=== PATIENT | female | born 1985 | race Caucasian/White ===

== ENCOUNTER 2021-04-02 14:56 | Emergency (ER) | payer OTHER ==
[~2021-04-02 14:56] MED LIST: CERTAGEN1 EACH PO; CITRATE OF MAG296 ML PO; HCTZ25 MG PO; IBUPROFEN800 MG PO; MACROBID100 MG PO; MAXALT10 MG PO; MIRALAX17 GM PO; NORETHINDRONE PO; ONDANSETRON ODT4 MG PO
[2021-04-02 16:32] LABS: BASOPHIL 0.2 % (0-2); EOSINOPHIL 0.1 % (0-5); HCT 33.6 % (37.0-47.0); HGB 11.2 g/dl (12.5-16.0); LYMPHOCYTE 4.8 % (15-48); MCH 28.9 pg (25.0-31.0); MCHC 33.3 g/dL (32.0-36.0); MCV 86.8 fL (78.0-100.0); MONOCYTE 5.5 % (0-12); MPV 9.8 fL (6.0-9.5); NEUTROPHIL 88.9 % (41-80); NRBC 0; PLT 267 K/uL (150-400); RBC 3.87 M/uL (4.20-5.40); RDW 14.1 % (11.5-14.0); WBC 16.6 K/uL (4.0-10.5)
[2021-04-02 16:32] LABS: BILIRUBIN NEGATIVE (NEGATIVE); BLOOD 1+ Ery/uL (NEGATIVE); CLARITY CLEAR (CLEAR); COLOR YELLOW (YELLOW); GLUCOSE (U) NORMAL (NORMAL); LEUKOCYTES 2+ Leu/uL (NEGATIVE); NITRITE NEGATIVE (NEGATIVE); PROTEIN 1+ mg/dL (NEGATIVE)
[2021-04-02 16:41] LABS: BACTERIA 3+
[2021-04-02 16:42] LABS: MUCOUS MODERATE; SQUAMOUS EPITHELIAL CELLS 20-50
[2021-04-02 16:47] LABS: ALBUMIN 2.3 g/dL (3.4-5.0); BILIRUBIN - TOTAL 0.5 mg/dL (0.2-1.0); CREATININE 0.6 mg/dL (0.51-0.95); GLOBULIN (CALCULATION) 3.5 g/dL; POTASSIUM 3.9 mmol/L (3.5-5.1); TOTAL PROTEIN 5.8 g/dL (6.4-8.2)
[2021-04-02] MEDS ORDERED: PROMETHEGA12.5 MG/SU PR (22:13)
[2021-04-02] MEDS ORDERED: MACROBID100 MG PO (22:13)
== END 2021-04-02 23:20 | disposition home or self-care (01) ==
LOC: FER 14:56
PROVIDERS: Nurse Practitioner Family
DX: O23.43 Unspecified infection of urinary tract in pregnancy, third trimester (principal); Z88.0 Allergy status to penicillin; Z91.040 Latex allergy status; Z3A.30 30 weeks gestation of pregnancy
CPT/HCPCS: 36415; 76770; 80053; 81001; 85025; 87076; 87088; 87186; J0696; J1200; J2550; J7030; J7120; Q0169

== ENCOUNTER 2021-06-07 16:46 | Inpatient (IN) | payer OTHER ==
[~2021-06-07] VITALS: Ht 167.6 cm; Wt 100.7 kg
[~2021-06-07 16:46] MED LIST changes: +PROMETHEGA12.5 MG/SU PR
[2021-06-08 01:20] LABS: HCT 31.7 % (37.0-47.0); HGB 10.3 g/dl (12.5-16.0); MCH 27.8 pg (25.0-31.0); MCHC 32.5 g/dL (32.0-36.0); MCV 85.7 fL (78.0-100.0); MPV 10.8 fL (6.0-9.5); RBC 3.7 M/uL (4.20-5.40); RDW 14.7 % (11.5-14.0); WBC 10.4 K/uL (4.0-10.5)
[2021-06-08 01:21] LABS: BILIRUBIN NEGATIVE (NEGATIVE); BLOOD NEGATIVE Ery/uL (NEGATIVE); CLARITY CLEAR (CLEAR); COLOR YELLOW (YELLOW); GLUCOSE (U) NORMAL (NORMAL); LEUKOCYTES NEGATIVE Leu/uL (NEGATIVE); NITRITE NEGATIVE (NEGATIVE); PROTEIN NEGATIVE (NEGATIVE); SPECIFIC GRAVITY 1.015 (1.001-1.030)
[2021-06-08 01:25] LABS: AMPHETAMINES NEGATIVE (NEGATIVE); BARBITURATES NEGATIVE (NEGATIVE); ECSTASY (MDMA) NEGATIVE (NEGATIVE); MARIJUANA (THC) NEGATIVE (NEGATIVE); METHADONE NEGATIVE (NEGATIVE); OPIATES NEGATIVE (NEGATIVE); OXYCODONE NEGATIVE (NEGATIVE)
[2021-06-08 09:07] LABS: ALBUMIN 2.1 g/dL (3.4-5.0); BILIRUBIN - TOTAL 0.2 mg/dL (0.2-1.0); BUN/CREAT RATIO (CALC) 9.2 RATIO; CREATININE 0.65 mg/dL (0.51-0.95); GLOBULIN (CALCULATION) 3.6 g/dL; POTASSIUM 4.3 mmol/L (3.5-5.1); TOTAL PROTEIN 5.7 g/dL (6.4-8.2)
[2021-06-08 09:30] LABS: PROTEIN:CREATININE 0.21 RATIO; URINE CREATININE 109.15 mg/dL (29.00-226.00); URINE TOTAL PROTEIN-RANDOM 23.9 mg/dL (<11.9)
[2021-06-09 07:23] LABS: HCT 25.2 % (37.0-47.0); HGB 8.2 g/dl (12.5-16.0); MCH 28.3 pg (25.0-31.0); MCHC 32.5 g/dL (32.0-36.0); MCV 86.9 fL (78.0-100.0); MPV 10.5 fL (6.0-9.5); RBC 2.9 M/uL (4.20-5.40); WBC 11.9 K/uL (4.0-10.5)
[2021-06-10] MEDS ORDERED: VITAMIN D325 MC1 PO (19:33)
[2021-06-10] MEDS ORDERED: FEOSOL325 MG PO (19:33)
[2021-06-10] MEDS ORDERED: CLONIDINE HCL0.1 MG PO (19:33)
[2021-06-10] MEDS ORDERED: KETOROLAC TROME10 MG PO (19:33)
== END 2021-06-11 15:35 | disposition home or self-care (01) | DRG 787 ==
LOC: FOB 16:46
PROVIDERS: ADMIT Obstetrics & Gynecology
PROC: 10907ZC Drainage of Amniotic Fluid, Therapeutic from Products of Conception, Via Natural or Artificial Opening (ICD-10-PCS; 2021-06-08)
PROC: 10H07YZ Insertion of Other Device into Products of Conception, Via Natural or Artificial Opening (ICD-10-PCS; 2021-06-08)
PROC: 10D00Z1 Extraction of Products of Conception, Low, Open Approach (ICD-10-PCS; principal; 2021-06-08 18:30)
DX: O10.92 Unspecified pre-existing hypertension complicating childbirth (principal); D62 Acute posthemorrhagic anemia; Z37.0 Single live birth; Z3A.39 39 weeks gestation of pregnancy; O99.214 Obesity complicating childbirth; Z20.822 Contact with and (suspected) exposure to COVID-19; O76 Abnormality in fetal heart rate and rhythm complicating labor and delivery; O99.03 Anemia complicating the puerperium; O69.81X0 Labor and delivery complicated by cord around neck, without compression, not applicable or unspecified; F11.11 Opioid abuse, in remission; Z91.19 Patient's noncompliance with other medical treatment and regimen; Z88.0 Allergy status to penicillin; Z98.84 Bariatric surgery status
CPT/HCPCS: 36415; 80053; 80305; 81003; 82570; 84156; J0456; J0690; J1200; J1580; J1885; J2001; J2250; J2274; J2370; J2405; J3010; J7050; J7120; U0002

== ENCOUNTER 2021-06-22 14:02 | Emergency (ER) | payer OTHER ==
[~2021-06-22 14:02] MED LIST changes: +CLONIDINE HCL0.1 MG PO; +FEOSOL325 MG PO; +KETOROLAC TROME10 MG PO; +VITAMIN D325 MC1 PO
[2021-06-22 15:10] LABS: BASOPHIL 1.1 % (0-2); EOSINOPHIL 9.5 % (0-5); HCT 35.5 % (37.0-47.0); LYMPHOCYTE 25.3 % (15-48); MCH 27.3 pg (25.0-31.0); MCV 88.1 fL (78.0-100.0); MONOCYTE 5.4 % (0-12); MPV 8.7 fL (6.0-9.5); NEUTROPHIL 57.5 % (41-80); NRBC 0; PLT 472 K/uL (150-400); RBC 4.03 M/uL (4.20-5.40); RDW 14.7 % (11.5-14.0); WBC 11.3 K/uL (4.0-10.5)
[2021-06-22 15:28] LABS: BUN/CREAT RATIO (CALC) 17.1 RATIO; CREATININE 0.76 mg/dL (0.51-0.95); POTASSIUM 4.2 mmol/L (3.5-5.1)
[2021-06-22 16:00] LABS: BILIRUBIN NEGATIVE (NEGATIVE); BLOOD 3+ Ery/uL (NEGATIVE); CLARITY CLOUDY (CLEAR); COLOR YELLOW (YELLOW); GLUCOSE (U) NORMAL (NORMAL); LEUKOCYTES 2+ Leu/uL (NEGATIVE); NITRITE NEGATIVE (NEGATIVE); PROTEIN TRACE (LOW) mg/dL (NEGATIVE)
[2021-06-22 16:12] LABS: BACTERIA 3+; URINARY WBC 20-50
[2021-06-22 16:13] LABS: MUCOUS TRACE
[2021-06-22] MEDS ORDERED: NORCO 5-325 TA1 EACH PO (17:58)
[2021-06-22] MEDS ORDERED: MEDROL 4MG DOSEP4 MG PO (17:58)
[2021-06-22] MEDS ORDERED: BACTRIM DS TAB1 EACH PO (17:59)
[2021-06-22] MEDS ORDERED: CLONIDINE HCL0.2 MG PO (18:08)
== END 2021-06-22 18:17 | disposition home or self-care (01) ==
LOC: FER 14:02
PROVIDERS: Nurse Practitioner Family
DX: N39.0 Urinary tract infection, site not specified (principal); T14.8XXA Other injury of unspecified body region, initial encounter; I10 Essential (primary) hypertension; Z98.890 Other specified postprocedural states; Z91.040 Latex allergy status; Z88.0 Allergy status to penicillin; Z79.899 Other long term (current) drug therapy; X58.XXXA Exposure to other specified factors, initial encounter
CPT/HCPCS: 36415; 71045; 71275; 80048; 81001; 83605; 85025; 85379; 87040; 87088; J1100; J7030; Q9967